=== PATIENT | female | born 1980 | race Hispanic/Latino ===

== ENCOUNTER 2017-11-21 12:53 | Emergency (ER) | payer OTHER ==
[2017-11-21] MEDS: ALPRAZolam 0.5 MG TAB PO (13:51)
== END 2017-11-21 14:15 | disposition home or self-care (01) ==
LOC: M ED 12:53
DX: F43.9 Reaction to severe stress, unspecified (principal); F41.1 Generalized anxiety disorder; F99 Mental disorder, not otherwise specified; Z79.899 Other long term (current) drug therapy
CPT/HCPCS: 99285

== ENCOUNTER 2020-01-06 21:20 | Emergency (ER) | payer OTHER ==
[~2020-01-06] VITALS: Ht 170.2 cm; Wt 77.0 kg
[~2020-01-06 21:20] MED LIST: DIAZ5TAB PO; HYDR-3363 PO; PRAZ1CAP PO; ZOLO100T PO
[2020-01-06] MEDS ORDERED: ASPIRIN 325 MG TAB PO ONE (22:30)
[2020-01-06] MEDS ORDERED: LIDOCAINE 4% CREAM 5GM (LMX4) TOP ONE (22:30)
--- NOTE | 2020-01-06 22:51 | REPVR ---
PROCEDURE INFORMATION: Exam: US Duplex Left Lower Extremity Veins, Limited Exam date and time: 01/06/2020 10:38 PM Age: 39 years old Clinical indication: Pain; Leg, lower; Left; Additional info: Sudden onset pain posterior knee, known varicose veins TECHNIQUE: Imaging protocol: Real-time Duplex ultrasound of the Left Lower Extremity with 2-D bliss scale, color Doppler flow and spectral waveform analysis with image documentation. Limited exam focused on the left lower extremity veins. COMPARISON: No relevant prior studies available. FINDINGS: Left deep veins: Unremarkable. The common femoral, femoral and popliteal veins are patent without thrombus. Normal compressibility, augmentation response and Doppler waveforms. Left superficial veins: Unremarkable. Saphenofemoral junction is patent without thrombus. Soft tissues: Unremarkable. IMPRESSION: No sonographic evidence of deep vein thrombosis. Electronically signed by: Samy Woods On 01/06/2020 22:51:41 PM
[2020-01-06] MEDS ORDERED: ANEC4CRE3 TOP (23:05)
[2020-01-06] MEDS ORDERED: ASPI-261 PO (23:05)
[2020-01-06 23:21] VITALS: BP 142/82
== END 2020-01-06 23:23 | disposition home or self-care (01) ==
LOC: M ED 21:20
DX: M25.562 Pain in left knee (principal); I86.8 Varicose veins of other specified sites; Z79.899 Other long term (current) drug therapy

== ENCOUNTER → 2020-03-23 | Outpatient (CLI) | payer SELFPAY ==
[~2020-03-23] MED LIST changes: +ANEC4CRE3 TOP; +ASPI-559 PO
== END ==
LOC: M LABSMTC 09:27
PROVIDERS: ATTEND Pediatrics
DX: Z11.52 Encounter for screening for COVID-19 (principal)

== ENCOUNTER → 2020-05-18 | Outpatient (CLI) | payer SELFPAY ==
[~2020-05-18] MED LIST changes: -ASPI-559 PO; +ASPI325T3 PO
== END ==
LOC: M LABSMTC 12:26
PROVIDERS: ATTEND Pediatrics
DX: Z20.828 Contact with and (suspected) exposure to other viral communicable diseases (principal); Z11.59 Encounter for screening for other viral diseases

== ENCOUNTER 2020-06-30 08:53 | Emergency (ER) | payer OTHER ==
[~2020-06-30] VITALS: Ht 170.2 cm; Wt 78.0 kg
[2020-06-30 09:34] LABS: BASO # 0.1 10^3/uL (0.0-0.2); BASO % 0.5 % (0.0-1.0); EOS # 0.1 10^3/uL (0.0-0.5); HEMATOCRIT 41.6 % (36.0-47.0); HEMOGLOBIN 13.4 g/dl (12.0-15.5); LYMPH # 2.1 10^3/uL (1.5-5.0); LYMPH % 22.5 % (24.0-44.0); MEAN CORPUSCULAR HEMOGLOBIN 28.3 pg (27.0-33.0); MEAN CORPUSCULAR HGB CONC 32.2 g/dl (32.0-36.5); MEAN CORPUSCULAR VOLUME 87.8 fl (80.0-96.0); MONO # 0.5 10^3/uL (0.0-0.8); NEUTROPHILS # 6.6 10^3/uL (1.5-8.5); NEUTROPHILS % 70.6 % (36.0-66.0); PLATELET COUNT, AUTOMATED 246 10^3/uL (150-450); RED BLOOD COUNT 4.74 10^6/uL (4.00-5.40); WHITE BLOOD COUNT 9.4 10^3/uL (4.0-10.0)
[2020-06-30 10:18] LABS: ALBUMIN 3.5 GM/DL (3.2-5.2); ALT/SGPT 15 U/L (12-78); BILIRUBIN,DIRECT < 0.1 MG/DL (0.0-0.2); BILIRUBIN,TOTAL 0.3 MG/DL (0.2-1.0); HCG, SERUM QUANTITATIVE 26663 MIU/ML; TOTAL PROTEIN 6.8 GM/DL (6.4-8.2)
--- NOTE | 2020-06-30 10:25 | REP ---
INDICATION: VAGINAL BLEEDING. COMPARISON: None. TECHNIQUE: Real-time sonographic evaluation of pelvis performed utilizing transabdominal and endovaginal technique. FINDINGS: The uterus is enlarged and heterogeneous, 12.4 x 8.1 x 10.3 cm. Multiple fibroids are seen in the myometrium. Two fibroids on the left measure 4.4 x 4.2 x 4.2 cm and 1.9 x 1.9 x 2.1 cm. Two fibroids on the right measure 4.9 x 3.9 x 3.6 cm and 2.9 x 2.2 x 2.6 cm. A sac is seen in the endometrial canal. This could only be seen on transabdominal imaging. Mean sac diameter is 15 mm corresponding to an estimated gestational age of 6 weeks 2 days. No yolk sac or pole is visualized transabdominally. Subchorionic hemorrhage is visualized adjacent to the sac measuring 5.3 x 1.9 x 5.4 cm. The ovaries could not be visualized. No adnexal mass or free fluid is visualized. IMPRESSION: Enlarged fibroid uterus. A sac is seen in the endometrial canal with a mean sac diameter of 15 mm, only visualized on transabdominal imaging. This would correspond to an estimated gestational age of 6 weeks 2 days. No yolk sac or pole is visualized within. This could represent a very early intrauterine gestation. There is an adjacent subchorionic hemorrhage measuring 5.3 x 1.9 x 5.4 cm. The ovaries could not be visualized. No adnexal mass or free fluid. <Electronically signed by Randy Katz > 06/30/20 1029
[2020-06-30 11:16] LABS: CHLAMYDIA DNA AMPLIFICATION NEGATIVE (NEGATIVE); GC DNA AMPLIFICATION NEGATIVE (NEGATIVE)
[2020-06-30 12:09] VITALS: BP 126/73
== END 2020-06-30 12:29 | disposition home or self-care (01) ==
LOC: M ED 08:53
DX: O20.0 Threatened abortion (principal); O20.8 Other hemorrhage in early pregnancy; Z3A.01 Less than 8 weeks gestation of pregnancy

== ENCOUNTER → 2020-07-17 | Outpatient (CLI) | payer OTHER | LOC: M LABSMTC 09:53 | PROVIDERS: ATTEND Anesthesiology | DX: Z20.828 Contact with and (suspected) exposure to other viral communicable diseases (principal); Z11.59 Encounter for screening for other viral diseases ==

== ENCOUNTER 2020-07-18 11:12 | Day surgery (SDC) | payer OTHER ==
[~2020-07-18] VITALS: Ht 170.2 cm; Wt 78.5 kg
[2020-07-18] VITALS (9 sets, daily range): BP systolic 90–146; BP diastolic 51–70
[2020-07-18] MEDS ORDERED: SCOPOLAMINE 1MG TRANSDERMAL PATCH TOP ONE (12:20)
[2020-07-18] MEDS ORDERED: DOXYCYCLINE HYCLATE 100MG TABLET PO ONE (12:20)
[2020-07-18] MEDS ORDERED: ACETAMINOPHEN *IV* 1,000 MG IV ONE ×2 (12:20)
[2020-07-18] MEDS ORDERED: LR 1,000 ML IV ONE (12:20)
[2020-07-18 12:51] LABS: HEMATOCRIT 41.7 % (36.0-47.0); HEMOGLOBIN 13.4 g/dl (12.0-15.5); MEAN CORPUSCULAR HEMOGLOBIN 28.3 pg (27.0-33.0); MEAN CORPUSCULAR HGB CONC 32.1 g/dl (32.0-36.5); MEAN CORPUSCULAR VOLUME 88.2 fl (80.0-96.0); PLATELET COUNT, AUTOMATED 249 10^3/uL (150-450); RED BLOOD COUNT 4.73 10^6/uL (4.00-5.40); WHITE BLOOD COUNT 14.9 10^3/uL (4.0-10.0)
[2020-07-18] MEDS ORDERED: CLINDAMYCIN 900 MG in IV 1 EA IV ONE (13:00)
[2020-07-18] MEDS ORDERED: GENTAMICIN 400 MG in D5W 100 ML IV ONE (13:00)
[2020-07-18] MEDS ORDERED: AMPICILLIN SOD 2 GM in D5W MINI-BAG PLUS 100 ML IV ONE (13:00)
[2020-07-18 13:11] LABS: INR 0.94; PROTHROMBIN TIME 12.8 SECONDS (12.5-14.3)
[2020-07-18 13:12] LABS: PARTIAL THROMBOPLASTIN TIME 26.8 SECONDS (24.2-38.5)
[2020-07-18] MEDS ORDERED: dexameTHASONE 4 MG/ML 1ML VIAL (J1100 PER 1MG) As Ordered ONE (13:26)
[2020-07-18] MEDS ORDERED: ONDANSETRON 4MG/2ML VIAL As Ordered ONE (13:26)
[2020-07-18 13:31] LABS: ALBUMIN 3.6 GM/DL (3.2-5.2); ALT/SGPT 17 U/L (12-78); BILIRUBIN,TOTAL 0.5 MG/DL (0.2-1.0); BLOOD UREA NITROGEN 6 MG/DL (7-18); CALCIUM LEVEL 9.2 MG/DL (8.5-10.1); CARBON DIOXIDE LEVEL 26 MEQ/L (21-32); CHLORIDE LEVEL 104 MEQ/L (98-107); CREATININE FOR GFR 0.72 MG/DL (0.55-1.30); GLOMERULAR FILTRATION RATE > 60.0 (>58); GLUCOSE, FASTING 73 MG/DL (70-100); POTASSIUM SERUM 4.4 MEQ/L (3.5-5.1); SODIUM LEVEL 138 MEQ/L (136-145)
[2020-07-18 13:33] LABS: PROLACTIN 16.3 NG/ML
[2020-07-18] MEDS ORDERED: KETOROLAC 60MG 2ML VIAL As Ordered ONE (13:33)
[2020-07-18] MEDS ORDERED: ACETAMINOPHEN 1000MG 100ML IV BTL (OFIRMEV) (J0131 PER 10MG) As Ordered ONE (13:33)
[2020-07-18] MEDS ORDERED: METOCLOPRAMIDE INJ 10MG/2ML VIAL (J2765 PER 1) As Ordered ONE (13:33)
[2020-07-18] MEDS ORDERED: PHENYLephrine 500MCG 5ML (100MCG/ML) SYRINGE As Ordered ONE (13:38)
[2020-07-18] MEDS ORDERED: propofoL 200 MG/20 ML VIAL As Ordered ONE (13:41)
[2020-07-18] MEDS ORDERED: MIDAZOLAM INJ 2MG/2ML VIAL (J2250 PER 1MG) As Ordered ONE (13:41)
[2020-07-18] MEDS ORDERED: LIDOCAINE 2% 100MG/5ML SDV (FOR ANES.) As Ordered ONE (13:41)
[2020-07-18] MEDS ORDERED: fentaNYL 100 MCG/2 ML INJECTION (J3010) As Ordered ONE (13:41)
[2020-07-18] MEDS ORDERED: fentaNYL 100 MCG/2 ML INJECTION (J3010) IV PRN (13:45)
[2020-07-18] MEDS ORDERED: LR 1,000 ML IV SCH (13:45)
[2020-07-18] MEDS ORDERED: oxyCODONE 5MG TAB PO PRN ×2 (13:45→14:45)
[2020-07-18] MEDS ORDERED: HYDROMORPHONE HCL 0.5 MG/ 0.5 ML SYRINGE (J1170 PER 1) IV PRN (13:45)
[2020-07-18] MEDS ORDERED: ONDANSETRON 4MG/2ML VIAL IV PRN (13:45)
[2020-07-18] MEDS ORDERED: SILVER NITRATE APPLICATOR As Ordered ONE (14:03)
--- NOTE | 2020-07-18 14:37 | ROOPDOC ---
[facility] Report Of Operation Report of Operation DATE OF PROCEDURE: 07/18/20 PREPROCEDURE DIAGNOSES: presumed septic POSTPROCEDURE DIAGNOSES: same PROCEDURE: suction dilation and curettage under ultrasound guidance SURGEON: Chai Edwards DO TEACHER AIDE CLERICAL: none ANESTHESIA: general ESTIMATED BLOOD LOSS: Approximately 300 mL. COMPLICATIONS: none REMARKS: The patient arrived to the pre-anesthesia holding unit and was found to have a fever to 101F. She denied any symptoms on a 12 point review of systems other than continued, unchanged, vaginal spotting. A complete physical exam was performed and no abnormalities were found. I discussed with the patient the concern for septic as the source of her fever, joint decision was made to proceed with presumptive treatment for septic . Blood cultures were obtained. The patient received ampicillin, gentamicin, and clindamycin and her surgery was expedited. PROCEDURE NOTE: The risks, benefits, and alternatives of the procedure were discussed and written consent obtained. The patient was taken to the OR and placed under anesthesia. She was positioned in low lithotomy with her arms out. The vagina and perineum were prepped and draped in a sterile fashion. The bladder was drained. A final time out was performed. An operative speculum was placed in the vagina and a single tooth tenaculum used to grasp the anterior lip of the cervix. The cervix was dilated to 20F with hanks dilators. An 8mm suction curette was tested to the green zone. The curette was passed until no further tissue return could be visualized. An endometrial curette was used gently under ultrasound guidance to appreciate 360 degree cry. The resulting endometrial stripe was thin. The uterus was firm and bleeding was scant. The tenaculum was removed and the puncture sites hemostatic with the aid of silver nitrate. The speculum was removed. There were no complications. The sponge, lap, and needle counts were correct x2. The patient tolerated the procedure well and was transferred to recovery in stable condition. CHAI EDWARDS DO Jul 18, 2020 14:37
[2020-07-18] MEDS: ACETAMINOPHEN 500 MG TAB PO SCH ×2 (18:13→23:48)
[2020-07-18] MEDS: AMPICILLIN SOD 2 GM in D5W MINI-BAG PLUS 100 ML IV SCH (18:14)
[2020-07-18] MEDS: CLINDAMYCIN 900 MG in IV 1 EA IV SCH (22:14)
[2020-07-19 02:00] VITALS: BP 89/56
[2020-07-19 03:16] VITALS: BP 126/63
[2020-07-19] MEDS: ACETAMINOPHEN 500 MG TAB PO SCH ×3 (05:01→18:03)
[2020-07-19] MEDS: CLINDAMYCIN 900 MG in IV 1 EA IV SCH ×3 (05:01→22:26)
[2020-07-19 06:00] VITALS: BP 122/64
[2020-07-19] MEDS: AMPICILLIN SOD 2 GM in D5W MINI-BAG PLUS 100 ML IV SCH ×5 (06:00→18:03)
[2020-07-19 06:55] LABS: BASO % 0.2 % (0.0-1.0); EOS % 0.1 % (0.0-3.0); HEMATOCRIT 33.3 % (36.0-47.0); LYMPH # 1.1 10^3/uL (1.5-5.0); LYMPH % 9.2 % (24.0-44.0); MEAN CORPUSCULAR VOLUME 87.9 fl (80.0-96.0); MONO # 0.9 10^3/uL (0.0-0.8); MONO % 7.3 % (2.0-8.0); NEUTROPHILS % 82.6 % (36.0-66.0); PLATELET COUNT, AUTOMATED 251 10^3/uL (150-450); RED BLOOD COUNT 3.79 10^6/uL (4.00-5.40); WHITE BLOOD COUNT 12.1 10^3/uL (4.0-10.0)
--- NOTE | 2020-07-19 09:04 | IPNPDOC ---
Text Note Date of Service The patient was seen on 07/19/20. NOTE Ms. Lee is a 40yo POD1 s/p uncomplicated suction D+C for missed abo rtion that was reclassified as septic when she arrived to pre-op with a fever of 101F and leukocytosis. She although at no point has reported any symptoms of infection and has otherwise denied an extensive ROS and has had normal physical exams failing identify any alternative source of fever. She is currently on amp/gent/clinda for presumed septic and has been afebrile since 1200 on 07/18/20. This morning she denied fever, chills, stool change, nausea, vomiting, urinary complaints, headaches, visual changes, abdominal pain, swelling, or change in discharge. She is tolerating PO, ambulating, urinating, and passing flatus without issue. OB INFORMATION LMP -> AMANDA Blood type: Rh pos PROBLEM: hx of DVT x2 with clot removal PROBLEM: hx of PTD x2 PROBLEM: advanced maternal age PROBLEM: anxiety/depression, denied si/hi, declined /Jarad consult PROBLEM: ASCUS HPV neg - Plan: cotest in 3y () HISTORY MHX: hx DVT x2 requiring surgical removal, anxiety, depression GYNHX: denied sti, hsv, hpv OBHX: G1 2000 36wk PTD 6#13 PTL. G2 2017 36wk PTD 7#1. SAB x4. SHX: surgical DVT removal x2, suction D+C ALL: iodine MED: PNV Social hx: denies tobacco, alcohol, or drug use. Family hx: adopted VIT: reviewed WNL GEN: AAOx3, NAD, well nourished, clean CARDS: non-tachy PULM: no increased WOB ABD: non-tender, no r/g EXT: BL LE no-edema or tenderness, negative homans PSYCH: normal affect and insight Ms. Lee is a 40yo POD1 s/p uncomplicated suction D+C for missed that was reclassified as septic when she arrived to pre-op with a fever of 101F and leukocytosis. She although at no point has reported any symptoms of infection and has otherwise denied an extensive ROS and has had normal physical exams failing identify any alternative source of fever. She is currently on amp/gent/clinda for presumed septic and has been afebrile since 1200 on 07/18/20. Notably patient has had DVT x2, while on control and qualifies for recurrent loss which is concerning for a clotting disorder. RPL/clotting work up was ordered with her pre-op labs with exception of protein S which will need to be drawn >6wk after her . She is meeting all post-operative goals and has normal vital signs. G/C and blood cultures remain pending. CBC this morning with improving leukocytosis. Her CMP, lactate, coags, and COVID testing were normal. Plan - continue amp/gent/clinda until 48h afebrile (at this point off at 1200 tomorrow) with plan for discharge on metronidazole and doxycycline for 10 days - continue lovenox 40mg/d for DVT prophylaxis which will be continued for 2 weeks after her procedure - pending: RPL work up, clotting disorder work up, blood cultures, G/C - continue tylenol and ibuprofen for pain control - regular diet - activity as tolerated, ambulate cueto minimum 3 times a day - SCDs on at all times unless ambulating - plan for follow up 2wk after discharge to review work up results Mariza Kincaid, I+O VS, Mariza, I+O Laboratory Tests 07/18/20 11:15 07/19/20 06:25 Vital Signs Date Time Temp Pulse Resp B/P (MAP) Pulse Ox O2 Delivery O2 Flow Rate FiO2 07/19/20 06:00 98.8 65 16 122/64 (83) 96 Room Air I&O- Last 24 Hours up to 6 AM 07/19/20 06:00 Intake Total 1110 ml Output Total 2600 ml Balance -1490 ml PARISA EDWARDS DO Jul 19, 2020 09:04
[2020-07-19] MEDS: oxyCODONE 5MG TAB PO PRN ×2 (09:41→22:26)
[2020-07-19 13:06] LABS: DRVV SCREEN 42.5 SEC
[2020-07-19 14:00] VITALS: BP 110/67
[2020-07-19] MEDS ORDERED: GENTAMICIN 400 MG in D5W 100 ML IV SCH (15:00)
[2020-07-19] MEDS ORDERED: ENOXAPARIN 40MG/0.4ML SYRINGE (J1650 PER 10MG) SC SCH (19:00)
[2020-07-19 22:00] VITALS: BP 106/60
[2020-07-19] MEDS: IBUPROFEN 800 MG TAB PO SCH (22:25)
[2020-07-20] MEDS: ACETAMINOPHEN 500 MG TAB PO SCH ×2 (00:31→05:49)
[2020-07-20] MEDS: AMPICILLIN SOD 2 GM in D5W MINI-BAG PLUS 100 ML IV SCH ×2 (00:32→07:09)
[2020-07-20 02:00] VITALS: BP_SYST 91; BP_SYST 94; BP_DIAS 49; BP_DIAS 60
[2020-07-20] MEDS: CLINDAMYCIN 900 MG in IV 1 EA IV SCH (05:49)
[2020-07-20] MEDS: IBUPROFEN 800 MG TAB PO SCH (05:50)
[2020-07-20 06:00] VITALS: BP 102/56
--- NOTE | 2020-07-20 06:51 | IPNPDOC ---
Text Note Date of Service The patient was seen on 07/20/20. NOTE Ms. Lee is a 40yo POD2 s/p uncomplicated suction D+C for missed that was reclassified as septic when she arrived to pre-op with a fever of 101F and leukocytosis. She although at no point has reported any symptoms of infection and has otherwise denied an extensive ROS and has had normal physical exams failing identify any alternative source of fever. She is c urrently on amp/gent/clinda for presumed septic and has been afebrile since 1200 on 07/18/20. This morning she denied fever, chills, stool change, nausea, vomiting, urinary complaints, headaches, visual changes, abdominal pain, swelling, or change in discharge. She is tolerating PO, ambulating, urinating, and passing flatus without issue. OB INFORMATION LMP -> AMANDA Blood type: Rh pos PROBLEM: hx of DVT x2 with clot removal PROBLEM: hx of PTD x2 PROBLEM: advanced maternal age PROBLEM: anxiety/depression, denied si/hi, declined /Jarad consult PROBLEM: ASCUS HPV neg - Plan: cotest in 3y () HISTORY MHX: hx DVT x2 requiring surgical removal, anxiety, depression GYNHX: denied sti, hsv, hpv OBHX: G1 2000 36wk PTD 6#13 PTL. G2 2018 36wk PTD 7#1. SAB x4. SHX: surgical DVT removal x2, suction D+C ALL: iodine MED: PNV Social hx: denies tobacco, alcohol, or drug use. Family hx: adopted VIT: reviewed WNL GEN: AAOx3, NAD, well nourished, clean CARDS: non-tachy PULM: no increased WOB ABD: non-tender, no r/g EXT: BL LE no-edema or tenderness, negative homans PSYCH: normal affect and insight Ms. Lee is a 40yo POD2 s/p uncomplicated suction D+C for missed that was reclassified as septic when she arrived to pre-op with a fever of 101F and leukocytosis. She although at no point has reported any symptoms of infection and has otherwise denied an extensive ROS and has had normal physical exams failing identify any alternative source of fever. She is currently on amp/gent/clinda for presumed septic and has been afebrile since 1200 on 07/18/20. Notably patient has had DVT x2, while on control and qualifies for recurrent loss which is concerning for a clotting disorder. RPL/clotting work up was ordered with her pre-op labs with exception of protein S which will need to be drawn >6wk after her . She is m eeting all post-operative goals and has normal vital signs. G/C negative. Blood cultures remain pending. CBC with improving leukocytosis. Her CMP, lactate, coags, and COVID testing were normal. Plan - continue amp/gent/clinda until 48h afebrile (at this point done at 1200 from [facility] today with last dose at 0700 so may leave after last dose) with plan for discharge on metronidazole and doxycycline for 10 days (paper script given) - continue lovenox 40mg/d for DVT prophylaxis which will be continued for 2 w eeks after her procedure - pending: RPL work up, clotting disorder work up, blood cultures - continue tylenol and ibuprofen for pain control - regular diet - activity as tolerated, ambulate cueto minimum 3 times a day - SCDs on at all times unless ambulating - plan for follow up 2wk after discharge to review work up results Halima VSMariza I+O VS, Mariza, I+O Vital Signs Date Time Temp Pulse Resp B/P (MAP) Pulse Ox O2 Delivery O2 Flow Rate FiO2 07/20/20 06:00 96.9 59 21 102/56 (71) 97 Room Air I&O- Last 24 Hours up to 6 AM 07/20/20 06:00 Intake Total 2740 ml Output Total 800 ml Balance 1940 ml PARISA EDWARDS DO Jul 20, 2020 06:51
--- NOTE | 2020-07-20 06:55 | DS.PDOC ---
Discharge Summary General Date of Admission Date of Discharge 07/20/20 Discharge Summary OB INFORMATION LMP [id number] -> AMANDA Blood type: Rh pos PROBLEM: hx of DVT x2 with clot removal PROBLEM: hx of PTD x2 PROBLEM: advanced maternal age PROBLEM: anxiety/depression, denied si/hi, declined BH/Jarad consult PROBLEM: ASCUS HPV neg - Plan: cotest in 3y () HISTORY MHX: hx DVT x2 requiring surgical removal, anxiety, depression GYNHX: denied sti, hsv, hpv OBHX: G1 2000 36wk PTD 6#13 PTL. G2 2017 36wk PTD 7#1. SAB x4. SHX: surgical DVT removal x2, suction D+C ALL: iodine MED: PNV Social hx: denies tobacco, alcohol, or drug use. Family hx: adopted Ms. Lee is a 40yo after an uncomplicated suction D+C for missed that was reclassified as septic when she arrived to pre-op with a fever of 101F and leukocytosis. She although at no point has reported any symptoms of infection and has otherwise denied an extensive review of systems and has had normal physical exams failing identify any alternative source of fever. She recieved 48h of ampicillin/gentamicin/clindamycin for presumed septic and has been afebrile since 1200 on 07/18/20. Notably patient has had DVT x2, while on control and qualifies for recurrent loss which is concerning for a clotting disorder. Recurrent loss and clotting work up was ordered with her pre-op labs with exception of protein S which will need to be drawn >6wk after her . She is meeting all post-operative goals and has normal vital signs. Gonorrhea and chlamydia were negative. Blood cultures remain pending but thus far has had no growth. CBC showed improving leukocytosis. Her CMP, lactate, coags, and COVID testing were normal. Plan - continue on metronidazole and doxycycline for 10 days (paper script given) - continue lovenox 40mg/d for DVT prophylaxis for 2 weeks after procedure - pending: RPL work up, clotting disorder work up, blood cultures - to be discussed at 2 week follow up - continue tylenol and ibuprofen for pain control - regular diet - activity as tolerated, ambulate cueto minimum 3 times a day - plan for follow up 2wk after discharge to review work up results - discussed routine post-op return precautions (to include heavy bleeding, fever) and activity limitations (2 weeks of pelvic rest) Vital Signs/I&Os Vital Signs Date Time Temp Pulse Resp B/P (MAP) Pulse Ox O2 Delivery O2 Flow Rate FiO2 07/20/20 06:00 96.9 59 21 102/56 (71) 97 Room Air I&O- Last 24 Hours up to 6 AM 07/20/20 06:00 Intake Total 2740 ml Output Total 800 ml Balance 1940 ml Microbiology Microbiology 07/18/20 Blood Culture - Preliminary, Resulted No growth after 24 hours . All specim... Discharge Medications No Active Prescriptions or Reported Meds Allergies Coded Allergies: iodine (Verified Allergy, Severe, DIFFICULTIES BREATHING, 07/17/20) PARISA EDWARDS DO Jul 20, 2020 06:55
[2020-07-24 12:07] LABS: BETA-2 GLYCOPROTEIN I ABY IGA <9 (0-25); BETA-2 GLYCOPROTEIN I ABY IGG <9 (0-20); BETA-2 GLYCOPROTEIN I ABY IGM 13 (0-32); CARDIOLIPIN IGA ANTIBODY <9 APL U/mL (0-11); CARDIOLIPIN IGG ANTIBODY <9 GPL U/mL (0-14); CARDIOLIPIN IGM ANTIBODY <9 MPL U/mL (0-12); PROTEIN C RESISTANCE ACTIVATED 2.7 ratio (2.2-3.5)
[2020-08-04 13:31] LABS: CHROMKB1 SEE SEPARATE REPORT
== END 2020-07-20 09:24 | disposition home or self-care (01) ==
LOC: M SDC 11:12 → M MS5PR 15:50 → M SDC 07-20 09:24
PROVIDERS: ATTEND Obstetrics & Gynecology
DX: O02.1 Missed abortion (principal); N96 Recurrent pregnancy loss
CPT/HCPCS: 36415; 59820; 80053; 83036; 83605; 84146; 84443; 85025; 85027; 85301; 85307; 85384; 85610; 85730; 86146; 86147; 86850; 86900; 86901; 87040; 87490; 87590; 87661; 88230; 88262; 88291; 88305; 96365; 96366; 96372; 96375; 96376; J0131; J0290; J1100; J1580; J1650; J2250; J2370; J2405; J2765; J3010; U0002

== ENCOUNTER → 2020-09-28 | Outpatient (REF) | payer OTHER ==
[~2020-09-28] MED LIST changes: +ASPI-584 PO; -ASPI325T3 PO
== END ==
LOC: M LAB REF 09:11
PROVIDERS: ATTEND Physician Assistant
DX: N39.0 Urinary tract infection, site not specified (principal)

== ENCOUNTER → 2021-01-02 | Outpatient (CLI) | payer OTHER ==
[~2021-01-02] MED LIST changes: +ISOVUE-370 76% 100ML VIAL As Ordered ONE
--- NOTE | 2021-01-02 18:18 | REP ---
INDICATION: INFERTILITY. COMPARISON: None. TECHNIQUE: The endometrium was cannulated and contrast was injected by the attending laundry manager . Fluoroscopic spot films were acquired by JONH Thompson, under the direct supervision of Dr. Katz. Images reviewed prior to dictation with Dr. Katz. FINDINGS: Fluoroscopy spot radiographs document filling of a normal endometrial cavity. There is normal isthmic and ampullary fallopian tube opacification, and bilateral tubal patency was documented. IMPRESSION: Normal hysterosalpingogram with bilateral tubal patency documented. 0.5 minutes of fluoroscopy time was utilized for this procedure. Some fluoroscopic images are performed with last image hold technology. These images require no additional radiation. <Electronically signed by Amee Navarro > 01/02/21 1601 <Electronically signed by Randy Katz > 01/02/21 [id number]
== END ==
LOC: M RADPRO 11:48
PROVIDERS: ATTEND Obstetrics & Gynecology
DX: N97.9 Female infertility, unspecified (principal)
CPT/HCPCS: 58340; 74740; Q9967

== ENCOUNTER → 2023-02-25 | Outpatient (CLI) | payer OTHER ==
[~2023-02-25] MED LIST changes: +ACET-897 PO; -ASPI-584 PO; +ASPI325T62 PO; -ISOVUE-370 76% 100ML VIAL As Ordered ONE; +MULTTAB20 PO
[2023-02-25 14:15] LABS: BASO % 0.5 % (0.0-1.0); EOS # 0.1 10^3/uL (0.0-0.5); EOS % 1.6 % (0.0-3.0); HEMATOCRIT 42.4 % (36.0-47.0); HEMOGLOBIN 13.3 g/dl (12.0-15.5); LYMPH # 2.2 10^3/uL (1.5-5.0); MEAN CORPUSCULAR HEMOGLOBIN 28.2 pg (27.0-33.0); MEAN CORPUSCULAR HGB CONC 31.4 g/dl (32.0-36.5); MONO # 0.5 10^3/uL (0.0-0.8); MONO % 6.4 % (2.0-8.0); NEUTROPHILS # 4.8 10^3/uL (1.5-8.5); NEUTROPHILS % 61.8 % (36.0-66.0); PLATELET COUNT, AUTOMATED 300 10^3/uL (150-450); RED BLOOD COUNT 4.71 10^6/uL (4.00-5.40); WHITE BLOOD COUNT 7.7 10^3/uL (4.0-10.0)
[2023-02-25 14:28] LABS: INR 1.02; PROTHROMBIN TIME 13.1 SECONDS (12.5-14.5)
[2023-02-25 14:29] LABS: PARTIAL THROMBOPLASTIN TIME 30.9 SECONDS (24.8-34.2)
== END ==
LOC: M PLALAB 10:48
PROVIDERS: ATTEND Internal Medicine Hematology
DX: I82.90 Acute embolism and thrombosis of unspecified vein (principal)
CPT/HCPCS: 36415; 81240; 82607; 83090; 85025; 85240; 85300; 85303; 85306; 85598; 85610; 85730; G0463

== ENCOUNTER 2023-03-05 08:38 | Observation (INO) | payer OTHER ==
[~2023-03-05] VITALS: Ht 170.2 cm; Wt 82.6 kg
[~2023-03-05 08:38] MED LIST changes: +ceFAZolin SOD 2 GM in IV 1 EA IV ONE
[2023-03-05 09:35] LABS: HEMATOCRIT 40.1 % (36.0-47.0); MEAN CORPUSCULAR HEMOGLOBIN 28.5 pg (27.0-33.0); MEAN CORPUSCULAR HGB CONC 32.4 g/dl (32.0-36.5); MEAN CORPUSCULAR VOLUME 87.9 fl (80.0-96.0); PLATELET COUNT, AUTOMATED 332 10^3/uL (150-450); RED BLOOD COUNT 4.56 10^6/uL (4.00-5.40); WHITE BLOOD COUNT 8.5 10^3/uL (4.0-10.0)
[2023-03-05] MEDS ORDERED: LR 1,000 ML IV SCH ×2 (09:35→14:05)
[2023-03-05 09:59] LABS: HCG, SERUM QUALITATIVE NEGATIVE (NEGATIVE)
[2023-03-05] MEDS ORDERED: LIDOCAINE 2% 100MG/5ML SDV (FOR ANES.) As Ordered ONE (10:25)
[2023-03-05] MEDS ORDERED: MIDAZOLAM INJ 2MG/2ML VIAL As Ordered ONE (10:25)
[2023-03-05] MEDS ORDERED: fentaNYL 100 MCG/2 ML INJECTION As Ordered ONE (10:25)
[2023-03-05] MEDS ORDERED: KETOROLAC 60MG 2ML VIAL As Ordered ONE (10:26)
[2023-03-05] MEDS ORDERED: propofoL 200 MG/20 ML VIAL As Ordered ONE (10:26)
[2023-03-05] MEDS ORDERED: SUGAMMADEX SODIUM 500 MG/5 ML VIAL (BRIDION) As Ordered ONE (10:26)
[2023-03-05] MEDS ORDERED: ROCURONIUM BROMIDE 50MG/5ML VIAL As Ordered ONE (10:26)
[2023-03-05] MEDS ORDERED: ONDANSETRON 4MG 2ML VIAL As Ordered ONE (10:26)
[2023-03-05] MEDS ORDERED: ACETAMINOPHEN 1000MG 100ML IV BAG As Ordered ONE (10:27)
[2023-03-05] MEDS ORDERED: VASOPRESSIN INJ 20UNITS/ML 1ML VIAL As Ordered ONE (10:35)
[2023-03-05] MEDS ORDERED: ENOXAPARIN 40MG/0.4ML SYRINGE (J1650 PER 10MG) SC ONE (10:50)
[2023-03-05] MEDS ORDERED: HYDROmorphone HCL 2MG/ML 1ML VIAL As Ordered ONE (11:44)
[2023-03-05] MEDS ORDERED: ONDANSETRON 4MG 2ML VIAL IV PRN ×2 (13:50→14:05)
[2023-03-05] MEDS ORDERED: fentaNYL 100 MCG/2 ML INJECTION IV PRN ×2 (13:50→15:25)
[2023-03-05] MEDS ORDERED: PROMETHAZINE 25MG/ML 1ML VIAL IV PRN ×2 (14:05→15:25)
[2023-03-05] MEDS ORDERED: diphenhydrAMINE 50MG/ML VIAL IM PRN (14:05)
[2023-03-05] MEDS ORDERED: oxyCODONE 5MG TAB PO PRN ×3 (14:05→15:25)
[2023-03-05] MEDS: oxyCODONE 5MG TAB PO PRN ×2 (14:33→15:37)
[2023-03-05] MEDS ORDERED: HYDROMORPHONE HCL 0.5 MG/ 0.5 ML SYRINGE IV PRN (15:25)
[2023-03-05 16:15] VITALS: BP 95/56; TEMP 97.6; O2SAT 98
[2023-03-05 16:45] VITALS: BP 94/57; TEMP 97.4; O2SAT 99
[2023-03-05 17:15] VITALS: BP 95/58; TEMP 97.2; O2SAT 98
[2023-03-05] MEDS: ACETAMINOPHEN 500 MG TAB PO SCH ×2 (18:25→23:40)
[2023-03-05 19:15] VITALS: BP 107/58; TEMP 98.1; O2SAT 98
[2023-03-05] MEDS ORDERED: MORPHINE 2 MG/ML 1ML VIAL IV PRN (19:20)
[2023-03-05 20:15] VITALS: BP 125/72; TEMP 98.5; O2SAT 100
[2023-03-05] MEDS: MIRALAX *UNIT DOSE* 17GM PACKET PO SCH (20:31)
[2023-03-05] MEDS: KETOROLAC 30 MG/ML 1ML VIAL IV SCH (20:32)
[2023-03-05 21:15] VITALS: BP 107/58; TEMP 99; O2SAT 97
[2023-03-06] VITALS: BP 108/55; TEMP 97.8; O2SAT 97
[2023-03-06] MEDS: KETOROLAC 30 MG/ML 1ML VIAL IV SCH ×2 (02:16→08:44)
[2023-03-06 04:00] VITALS: BP 106/59; TEMP 99.5; O2SAT 96
[2023-03-06 05:54] LABS: BASO % 0.1 % (0.0-1.0); HEMATOCRIT 25.6 % (36.0-47.0); HEMOGLOBIN 8.4 g/dl (12.0-15.5); LYMPH # 2.4 10^3/uL (1.5-5.0); LYMPH % 17.3 % (24.0-44.0); MEAN CORPUSCULAR HEMOGLOBIN 29.2 pg (27.0-33.0); MEAN CORPUSCULAR HGB CONC 32.8 g/dl (32.0-36.5); MEAN CORPUSCULAR VOLUME 88.9 fl (80.0-96.0); MONO % 7.2 % (2.0-8.0); NEUTROPHILS # 10.5 10^3/uL (1.5-8.5); NEUTROPHILS % 75.1 % (36.0-66.0); PLATELET COUNT, AUTOMATED 247 10^3/uL (150-450); RED BLOOD COUNT 2.88 10^6/uL (4.00-5.40)
[2023-03-06] MEDS: ACETAMINOPHEN 500 MG TAB PO SCH (06:14)
[2023-03-06 08:00] VITALS: BP 117/69; TEMP 97.7; O2SAT 95
[2023-03-06] MEDS: MIRALAX *UNIT DOSE* 17GM PACKET PO SCH (08:44)
[2023-03-06] MEDS ORDERED: ENOXAPARIN 40MG/0.4ML SYRINGE (J1650 PER 10MG) SC SCH (09:00)
[2023-03-06] MEDS ORDERED: FERROUS SULFATE 325MG TAB PO SCH (09:00)
[2023-03-06] MEDS ORDERED: INFLUENZA QUADRIVALENT PF VACCINE 0.5ML SYRINGE IM.IMMUN ONE (11:00)
== END 2023-03-06 11:18 | disposition home or self-care (01) ==
LOC: M OR 08:38 → INTOOBSV 08:38 → EDSTATUS 10:30 → M PED 16:05
PROVIDERS: ADMIT Obstetrics & Gynecology; ATTEND Obstetrics & Gynecology
DX: D25.9 Leiomyoma of uterus, unspecified (principal); N97.9 Female infertility, unspecified; Z23 Encounter for immunization; I73.9 Peripheral vascular disease, unspecified; Z86.718 Personal history of other venous thrombosis and embolism; K21.9 Gastro-esophageal reflux disease without esophagitis; F41.9 Anxiety disorder, unspecified; G43.909 Migraine, unspecified, not intractable, without status migrainosus; Z79.899 Other long term (current) drug therapy; Z88.8 Allergy status to other drugs, medicaments and biological substances
CPT/HCPCS: 36415; 58140; 84703; 85025; 85027; 86850; 86900; 86901; 87635; 88305; 90686; 96361; 96372; 96374; 96376; C9290; G0008; J0131; J0665; J0690; J1100; J1170; J1650; J1885; J2250; J2405; J2550; J2598; J3010